=== PATIENT | female | born 1950 | race Two or more races ===

== ENCOUNTER 2016-04-13 22:22 | Emergency (ER) | payer OTHER ==
[~2016-04-13] VITALS: Ht 154.9 cm; Wt 59.9 kg
[~2016-04-13 22:22] MED LIST: DOXE100C4 PO; MONT10TA34 PO; OLAN5TAB30 PO; SIMV-13 PO; VENL75CA78 PO
[2016-04-14 00:09] LABS: Basophils # (auto) 0.1 uL; Basophils % (auto) 0.7 % (0.0-2.0); Eosinophils # (auto) 0.1 uL; Eosinophils % (auto) 0.5 % (0.0-7.0); Hematocrit 39.5 % (36.0-46.0); Hemoglobin 13.1 g/dL (12.2-16.2); Lymphocytes # (auto) 3.1 uL; Lymphocytes % (auto) 18.3 % (10.0-50.0); Mean Corpuscular Hemoglobin 31.4 pg (28.0-32.0); Mean Corpuscular Hgb Conc. 33.1 g/dL (32.0-36.0); Mean Corpuscular Volume 94.9 fL (80.0-100.0); Mean Platelet Volume 7.9 fL (7.4-10.4); Monocytes # (auto) 0.7 uL; Monocytes % (auto) 4.1 % (0.0-12.0); Neutrophils # (auto) 12.8 uL; Neutrophils % (auto) 76.4 % (37.0-80.0); Platelet Count (auto) 335 10^3/uL (140-450); Red Cell Distribution Width 14.4 % (11.6-16.0); SUSPECT VIEW TRANSMISSION; White Blood Cell 16.8 10^3/uL (4.4-10.8)
[2016-04-14 00:14] LABS: Urine Bilirubin Negative (Negative); Urine Blood Negative /uL (Negative); Urine Color Yellow (Yellow); Urine Glucose Normal (Normal); Urine Ketone Negative (Negative); Urine Nitrite Negative (Negative); Urine RBC 5 /hpf (0 - 4); Urine Squamous Epithelial Cell MOD /hpf (<5); Urine Urobilinogen Normal (Negative); Urine pH 6.5 (5.0-8.0)
[2016-04-14 00:22] LABS: INR 0.95 (0.9-1.15); Prothrombin Time 9.8 sec (9.37-12.3)
[2016-04-14 00:26] LABS: Albumin 2.9 g/dL (3.4-5.0); Anion Gap 9 (5-15); Aspartate Aminotransferase 18 U/L (15-37); BUN/Creatinine Ratio 12.8; Blood Urea Nitrogen 10 mg/dL (7-18); Calcium 8.2 mg/dL (8.5-10.1); Carbon Dioxide 26 mmol/L (21-32); Chloride 107 mmol/L (98-107); GFR African American 95 mL/min; GFR Non-African American 79 mL/min; Glucose 132 mg/dL (74-106); Potassium 3.3 mmol/L (3.5-5.1); Sodium 142 mmol/L (136-145)
[2016-04-14 00:29] LABS: Alkaline Phosphatase 80 U/L (45-117); Bilirubin, Total < 0.1 mg/dL (0.2-1.0); Total Protein 6.5 g/dL (6.4-8.2)
[2016-04-14] MEDS ORDERED: ASPirin 325 MG TAB PO ONE (06:30)
[2016-04-14] MEDS ORDERED: METOPROLOL SUCCINATE XL 50 MG TAB PO ONE (06:30)
[2016-04-14] MEDS ORDERED: POTASSIUM CHL 10% (20 MEQ/15ML) ORAL SOLN PO ONE (06:30)
[2016-04-14] MEDS ORDERED: NITROGLYCERIN 2% OINT 1GM PKG TD ONE (06:30)
[2016-04-14] MEDS ORDERED: ONDANSETRON HCL 4 MG/2 ML VIAL IV ONE (07:00)
[2016-04-14] MEDS ORDERED: MORPHINE SULFATE 4 MG/ML SYRG IV ONE (07:00)
[2016-04-14] MEDS ORDERED: ACETAMINOPHEN 325 MG TAB PO ONE (08:30)
[2016-04-14] MEDS ORDERED: MORPHINE SULF INJ 2 MG/ML SYRINGE 1ML IV ONE (12:15)
[2016-04-14 12:19] VITALS: BP 123/68
== END 2016-04-14 12:30 | disposition short-term general hospital (02) ==
LOC: EDBD 22:22 → ER 22:23
DX: R07.9 Chest pain, unspecified (principal); E87.6 Hypokalemia; R73.9 Hyperglycemia, unspecified; E44.0 Moderate protein-calorie malnutrition; J45.909 Unspecified asthma, uncomplicated; M19.011 Primary osteoarthritis, right shoulder; I10 Essential (primary) hypertension; R51 Headache; F17.210 Nicotine dependence, cigarettes, uncomplicated; Z79.899 Other long term (current) drug therapy
CPT/HCPCS: 36415; 71010; 80053; 81001; 84484; 85025; 85379; 85610; 85730; 93005; 94761; 96374; 96375; 96376; 99285; J2270; J2405